=== PATIENT | female | born 1955 | race Caucasian/White ===

== ENCOUNTER 2018-01-03 08:02 | Day surgery (SDC) | payer OTHER ==
[~2018-01-03] VITALS: Ht 162.6 cm; Wt 81.6 kg
[~2018-01-03 08:02] MED LIST: AMLO5TAB88 PO; AMYL1CAP61 PO; BENA1TAB21 PO; CHOL200074 PO; LEVO50TA PO; OMEP40CA34 PO; PRAV40TA58 PO
[2018-01-03] MEDS ORDERED: SODIUM CHLORIDE 0.9% 1,000 ML IV SCH (09:25)
[2018-01-03] MEDS ORDERED: SIMETHICONE 40 MG/0.6 ML 30ML ONE (09:36)
[2018-01-03] MEDS ORDERED: IOHEXOL-300 100 ML BOTTLE ONE (09:36)
[2018-01-03 09:50] LABS: CHLORIDE 109 mEq/L (98-107)
[2018-01-03] MEDS ORDERED: GLYCOPYRROLATE 0.2 MG/ML 2ML VIAL ONE (10:19)
[2018-01-03] MEDS ORDERED: PROPOFOL 200MG/20ML VIAL IV ONE (10:19)
[2018-01-03] MEDS ORDERED: FENTANYL CITRATE/PF 50MCG/ML 2ML VIAL ONE (10:20)
[2018-01-03] MEDS ORDERED: MIDAZOLAM HCL 2 MG/2 ML VIAL ONE (10:21)
== END 2018-01-03 13:30 | disposition home or self-care (01) ==
LOC: OR 08:02
PROVIDERS: ATTEND Internal Medicine Gastroenterology
DX: K82.8 Other specified diseases of gallbladder (principal); I10 Essential (primary) hypertension; K21.9 Gastro-esophageal reflux disease without esophagitis; Z79.899 Other long term (current) drug therapy; Z98.890 Other specified postprocedural states
CPT/HCPCS: 36415; 43262; 74328; 80048; 88104; 93005; C1726; J2250; J3010; J3490; Q9967; C1769; J2704; J7030

== ENCOUNTER 2018-11-24 05:31 | Inpatient (IN) | payer OTHER ==
[2018-11-24] VITALS (42 sets, daily range): BP systolic 96–125; BP diastolic 45–71
[~2018-11-24] VITALS: Ht 162.6 cm; Wt 83.5 kg
[2018-11-24] MEDS ORDERED: THROMBIN (BOVINE) 5000 UNITS/VIAL TOP ONE ×2 (06:13→06:14)
[2018-11-24] MEDS ORDERED: NORMAL SALINE 0.9% 10 ML SYR ONE (06:13)
[2018-11-24] MEDS ORDERED: BACITRACIN 50,000 UNITS/VIAL ONE (06:14)
[2018-11-24] MEDS ORDERED: LIDOCAINE HCL/EPINEPHRINE 1%-EPI 1:100,000 20 ML VIAL ONE (06:15)
[2018-11-24] MEDS ORDERED: LACTATED RINGERS 1,000 ML IV SCH (06:15)
[2018-11-24] MEDS ORDERED: MIDAZOLAM HCL 2 MG/2 ML VIAL ONE (07:04)
[2018-11-24] MEDS ORDERED: GLYCOPYRROLATE 0.2 MG/ML 2ML VIAL ONE ×2 (07:04→09:36)
[2018-11-24] MEDS ORDERED: NEOSTIGMINE METHYLSULFATE 1MG/ML 10 ML VIAL ONE (07:04)
[2018-11-24] MEDS ORDERED: FENTANYL CITRATE/PF 50MCG/ML 2ML VIAL ONE (07:04)
[2018-11-24] MEDS ORDERED: ROCURONIUM BROMIDE 10MG/ML VIAL 5ML IV ONE ×2 (07:04→09:06)
[2018-11-24] MEDS ORDERED: PROPOFOL 200MG/20ML VIAL IV ONE (07:04)
[2018-11-24] MEDS ORDERED: NICARDIPINE 100 MG in SODIUM CHLORIDE 0.9% 60 ML IV PRN (07:30)
[2018-11-24] MEDS ORDERED: ONDANSETRON HCL 4MG/2ML INJ IV PRN ×2 (07:30→09:00)
[2018-11-24] MEDS ORDERED: DEXAMETHASONE 4MG/ML 1ML VIAL ONE (07:49)
[2018-11-24] MEDS ORDERED: ONDANSETRON HCL 4MG/2ML INJ ONE (07:49)
[2018-11-24] MEDS ORDERED: FENTANYL CITRATE/PF 50MCG/ML 5ML VIAL ONE (07:53)
[2018-11-24] MEDS ORDERED: LABETALOL 5MG/ML SYR 20 MG/4 ML SYRINGE IV PRN (09:00)
[2018-11-24] MEDS ORDERED: HYDROMORPHONE HCL/PF 2MG/ML CPJ IV PRN (09:00)
[2018-11-24] MEDS ORDERED: MEPERIDINE HCL/PF 25MG/ML CPJ IV PRN (09:00)
[2018-11-24] MEDS ORDERED: DEXT 5%/LACTATED RINGERS 1,000 ML IV SCH (10:00)
[2018-11-24] MEDS: DEXT 5%/LACTATED RINGERS 1,000 ML IV SCH ×2 (10:00→20:35)
[2018-11-24] MEDS ORDERED: ONDANSETRON INJ IV PRN (12:15)
[2018-11-24] MEDS ORDERED: NALOXONE INJ IV PRN (12:15)
[2018-11-24] MEDS ORDERED: BENZONATATE 100MG CAPSULE PO PRN (12:30)
[2018-11-24] MEDS ORDERED: BISACODYL 5MG TABLET PO PRN (12:30)
[2018-11-24] MEDS ORDERED: IPRATROPIUM/ALBUTEROL 0.5-3(2.5)MG/3ML NEB HHN PRN (12:30)
[2018-11-24] MEDS: MORPHINE SULFATE 4 MG/ML CPJ (NOT FOR IM USE) IV PRN ×3 (12:47→17:21)
[2018-11-24] MEDS: DEXAMETHASONE 4MG/ML 1ML VIAL IV SCH ×2 (12:48→17:22)
[2018-11-24] MEDS: HYDROMORPHONE PCA 10MG/50ML IV PRN (13:04)
[2018-11-24] MEDS ORDERED: CEFAZOLIN SODIUM 1000MG/VIAL IV SCH (14:00)
[2018-11-24] MEDS: CEFAZOLIN 1000MG PREMIX 50 ML IV SCH ×2 (14:39→21:16)
[2018-11-24] MEDS: DOCUSATE SODIUM 100MG CAPSULE PO SCH (17:00)
[2018-11-25] VITALS (49 sets, daily range): BP systolic 99–144; BP diastolic 53–108
[2018-11-25] MEDS: DEXAMETHASONE 4MG/ML 1ML VIAL IV SCH ×5 (00:22→23:15)
[2018-11-25] MEDS: CEFAZOLIN 1000MG PREMIX 50 ML IV SCH (05:00)
[2018-11-25 05:23] LABS: HEMATOCRIT. 35.8 % (36.0-48.0); HEMOGLOBIN. 12.1 g/dL (12.0-16.0); MEAN CORPUSCULAR HEMOGLOBIN 29.3 pg (28.0-32.0); MEAN CORPUSCULAR VOLUME 86.4 fL (81.0-99.0); MEAN PLATELET VOLUME 10.3 fl (7.4-10.4); PLATELET 204 x1000/uL (130-400); RED BLOOD CELL COUNT 4.14 mill/uL (4.2-5.4); RED CELL DISTRIBUTION WIDTH 14.1 % (11.6-14.6)
[2018-11-25 05:27] LABS: CHLORIDE 101 mEq/L (98-107)
[2018-11-25 05:33] LABS: LDL CHOLESTEROL 98 mg/dL (5-100)
[2018-11-25 05:35] LABS: HDL CHOLESTEROL 61 mg/dL (40-59)
[2018-11-25] MEDS: LEVOTHYROXINE SODIUM 50MCG TABLET PO SCH (06:30)
[2018-11-25] MEDS: DEXT 5%/LACTATED RINGERS 1,000 ML IV SCH ×3 (06:47→23:16)
[2018-11-25] MEDS ORDERED: DIAZEPAM 5 MG TABLET PO NR (07:15)
[2018-11-25] MEDS: DOCUSATE SODIUM 100MG CAPSULE PO SCH ×2 (09:00→17:00)
[2018-11-25 09:38] LABS: PLATELET ESTIMATE NORMAL
[2018-11-25] MEDS: MORPHINE SULFATE 4 MG/ML CPJ (NOT FOR IM USE) IV PRN ×2 (13:14→17:04)
[2018-11-25] MEDS: HYDROMORPHONE PCA 10MG/50ML IV PRN (13:45)
[2018-11-25] MEDS: ATORVASTATIN CALCIUM 40MG TABLET PO SCH (21:11)
[2018-11-26] VITALS (33 sets, daily range): BP systolic 105–148; BP diastolic 51–87
[2018-11-26 05:22] LABS: CHLORIDE 106 mEq/L (98-107)
[2018-11-26] MEDS: LEVOTHYROXINE SODIUM 50MCG TABLET PO SCH (05:38)
[2018-11-26] MEDS: DEXAMETHASONE 4MG/ML 1ML VIAL IV SCH ×2 (05:38→11:46)
[2018-11-26] MEDS: DOCUSATE SODIUM 100MG CAPSULE PO SCH ×2 (07:37→17:22)
[2018-11-26] MEDS: MORPHINE SULFATE 4 MG/ML CPJ (NOT FOR IM USE) IV PRN (07:37)
[2018-11-26] MEDS: DEXT 5%/LACTATED RINGERS 1,000 ML IV SCH ×2 (09:13→20:14)
[2018-11-26] MEDS ORDERED: CLONIDINE 0.1MG TABLET PO PRN (11:15)
[2018-11-26] MEDS: AMLODIPINE 5MG TABLET PO SCH (11:45)
[2018-11-26] MEDS: BENAZEPRIL 10MG TABLET PO SCH (11:46)
[2018-11-26] MEDS: GUAIFENESIN 600MG ER TABLET PO SCH ×2 (11:46→20:07)
[2018-11-26] MEDS: ATORVASTATIN CALCIUM 40MG TABLET PO SCH (20:07)
[2018-11-27] VITALS (7 sets, daily range): BP systolic 104–140; BP diastolic 61–84
[2018-11-27] MEDS: DEXT 5%/LACTATED RINGERS 1,000 ML IV SCH (05:44)
[2018-11-27 06:00] LABS: CHLORIDE 106 mEq/L (98-107)
[2018-11-27 06:25] LABS: BASOPHILS % 0.1 % (0.0-2.0); EOSINOPHILS % 0.1 % (0.0-5.0); HEMATOCRIT. 38.7 % (36.0-48.0); HEMOGLOBIN. 13.1 g/dL (12.0-16.0); MEAN CORPUSCULAR VOLUME 85.9 fL (81.0-99.0); MEAN PLATELET VOLUME 10.2 fl (7.4-10.4); MONOCYTES % 6.4 % (2.0-8.0); NEUTROPHILS % 77.4 % (40.0-76.0); PLATELET 217 x1000/uL (130-400); RED BLOOD CELL COUNT 4.51 mill/uL (4.2-5.4)
[2018-11-27] MEDS: LEVOTHYROXINE SODIUM 50MCG TABLET PO SCH (06:33)
[2018-11-27] MEDS: AMLODIPINE 5MG TABLET PO SCH (08:43)
[2018-11-27] MEDS: DOCUSATE SODIUM 100MG CAPSULE PO SCH ×2 (08:43→17:00)
[2018-11-27] MEDS: BENAZEPRIL 10MG TABLET PO SCH (08:43)
[2018-11-27] MEDS: GUAIFENESIN 600MG ER TABLET PO SCH ×2 (08:43→21:15)
[2018-11-27] MEDS: HYDROCHLOROTHIAZIDE 12.5MG CAPSULE PO SCH (08:46)
[2018-11-27] MEDS: HYDROCODONE/ACETAMINOPHEN 5/325MG TABLET PO PRN ×2 (09:04→17:07)
[2018-11-27] MEDS: ATORVASTATIN CALCIUM 40MG TABLET PO SCH (21:15)
[2018-11-28] VITALS: BP 123/69
[2018-11-28 04:00] VITALS: BP 118/67
[2018-11-28] MEDS: LEVOTHYROXINE SODIUM 50MCG TABLET PO SCH (06:32)
[2018-11-28 07:22] LABS: BASOPHILS % 0.1 % (0.0-2.0); EOSINOPHILS % 1.7 % (0.0-5.0); HEMATOCRIT. 42.2 % (36.0-48.0); HEMOGLOBIN. 14.3 g/dL (12.0-16.0); LYMPHOCYTES % 31.3 % (20.0-50.0); MEAN CORPUSCULAR HEMOGLOBIN 29.1 pg (28.0-32.0); MEAN CORPUSCULAR VOLUME 85.6 fL (81.0-99.0); MEAN PLATELET VOLUME 9.8 fl (7.4-10.4); NEUTROPHILS % 59.9 % (40.0-76.0); PLATELET 242 x1000/uL (130-400); RED BLOOD CELL COUNT 4.93 mill/uL (4.2-5.4); RED CELL DISTRIBUTION WIDTH 14.2 % (11.6-14.6)
[2018-11-28 07:30] LABS: CHLORIDE 104 mEq/L (98-107)
[2018-11-28] MEDS: GUAIFENESIN 600MG ER TABLET PO SCH (09:00)
[2018-11-28] MEDS: DOCUSATE SODIUM 100MG CAPSULE PO SCH (09:50)
[2018-11-28] MEDS: AMLODIPINE 5MG TABLET PO SCH (09:57)
[2018-11-28] MEDS: BENAZEPRIL 10MG TABLET PO SCH (09:57)
[2018-11-28] MEDS: HYDROCHLOROTHIAZIDE 12.5MG CAPSULE PO SCH (09:57)
[2018-11-28 13:04] VITALS: BP 102/71
== END 2018-11-28 14:40 | disposition home or self-care (01) | DRG 453 ==
LOC: OR 05:31 → MICUNO 05:32 → 6EST 11-26 13:20
PROVIDERS: ADMIT Internal Medicine; ATTEND Neurological Surgery
PROC: 0RG20K1 Fusion of 2 or more Cervical Vertebral Joints with Nonautologous Tissue Substitute, Posterior Approach, Posterior Column, Open Approach (ICD-10-PCS; principal; 2018-11-24)
PROC: 0RB30ZZ Excision of Cervical Vertebral Disc, Open Approach (ICD-10-PCS; 2018-11-24)
PROC: 0RG20AJ Fusion of 2 or more Cervical Vertebral Joints with Interbody Fusion Device, Posterior Approach, Anterior Column, Open Approach (ICD-10-PCS; 2018-11-24)
DX: M50.021 Cervical disc disorder at C4-C5 level with myelopathy (principal); G82.50 Quadriplegia, unspecified; G95.29 Other cord compression; E78.5 Hyperlipidemia, unspecified; N18.9 Chronic kidney disease, unspecified; E11.22 Type 2 diabetes mellitus with diabetic chronic kidney disease; I12.9 Hypertensive chronic kidney disease with stage 1 through stage 4 chronic kidney disease, or unspecified chronic kidney disease; M48.02 Spinal stenosis, cervical region; E03.9 Hypothyroidism, unspecified; M43.12 Spondylolisthesis, cervical region; M50.121 Cervical disc disorder at C4-C5 level with radiculopathy; M50.01 Cervical disc disorder with myelopathy, high cervical region; M50.11 Cervical disc disorder with radiculopathy, high cervical region
CPT/HCPCS: 36415; 72040; 72141; 76000; 80048; 80061; 83036; 83735; 86850; 86900; 88304; 88311; 92610; 93970; 94002; 97116; 97162; 97535; C1893; J0690; J1100; J1170; J2250; J2270; J2405; J2704; J2710; J3010; J3490; J7050; J7121

== ENCOUNTER → 2020-05-27 | Outpatient (CLI) | payer OTHER ==
[~2020-05-27] MED LIST changes: +ACET-2708 PO; +ALBU05 IH; +ALBU90AE INH; +ATOR10TA69 PO; +DIPH25TA23 PO; +LORA10TA7 PO; -OMEP40CA34 PO; +PANT40TA51 PO
== END | disposition home or self-care (01) ==
LOC: LAB 08:38
PROVIDERS: ATTEND Neurological Surgery
DX: Z01.812 Encounter for preprocedural laboratory examination (principal); Z20.822 Contact with and (suspected) exposure to COVID-19
CPT/HCPCS: 87426